=== PATIENT | female | born 1975 | race African-American/Black ===

== ENCOUNTER 2021-11-14 08:57 | Emergency (ER) | payer OTHER, SELFPAY ==
--- NOTE | ~2021-11-14 | US_ITS ---
EXAMINATION: US pelvic complete w TV DATE: 11/14/2021 11:06 INDICATION: Pelvic pain. Heavy menses. Fibroids. TECHNIQUE: Multiple transabdominal and endovaginal sonographic images of the pelvis were obtained. COMPARISON: None. FINDINGS: The uterus measures 10.3 x 8.1 x 7.5 cm. The endometrial complex measures 8 mm in thickness. There a re at least 8 hypoechoic uterine fibroids, the largest measuring 5.3 cm in maximal diameter. There ar e coarse shadowing calcifications associated with a couple of the fibroids. A couple 7-8 mm anechoic nabothian cysts at the cervix. The right ovary is not visualized. The left ovary measures 2.2 x 2.3 x 1.2 with internal vascular flow on color Doppler. There is no free fluid in the pelvis. IMPRESSION: 1. Multiple uterine fibroids with normal endometrial complex thickness of 8 mm. Reviewed, dictated and finalized at location A.
[2021-11-14 09:14] VITALS: BP 131/95; PULSE 103; RESP 18; TEMP 37.2; O2SAT 98
[2021-11-14 09:19] LABS: Eosinophils Absolute Auto 0.1 K/mm3 (0-0.3); Eosinophils Percent Auto 2.2 % (0-4.4); Hematocrit 36.4 % (37.0-47.0); Hemoglobin 11.7 g/dL (12.0-15.0); Immature Granulocyte Absolute 0.01 K/mm3 (0.00-0.031); Immature Granulocyte Percent A 0.2 % (0-0.5); Lymphocytes Absolute Auto 1.59 K/mm3 (0.9-3.2); Lymphocytes Percent Auto 39.4 % (18.3-44.2); Mean Corpuscular HGB Conc 32.1 g/dl (32-36); Mean Corpuscular Hemoglobin 25.7 pg (26-34); Mean Platelet Volume 9.6 fl (7.4-10.4); Monocytes Absolute Auto 0.5 K/mm3 (0.1-0.6); Monocytes Percent Auto 11.4 % (2.6-8.5); Neutrophils Absolute Auto 1.9 K/mm3 (1.3-6.7); Neutrophils Percent Auto 45.8 % (45.5-73.1); Platelet Count Result 335 k/mm3 (150-375); Red Blood Count 4.55 M/mm3 (4.2-5.4); Red Cell Distribution Width 14.9 % (11.5-14.5)
[2021-11-14 09:26] LABS: Appearance Urine Clear (Clear); Bilirubin Urine Negative (Negative); Blood Urine Negative (Negative); Glucose Urine UA Negative (Negative); Ketones Urine Negative (Negative); Leukocyte Esterase Ur Negative LEU/UL (Negative); Nitrate Urine Negative (Negative); Protein Urine Negative (Negative); Specific Grav Ur <= 1.005 (1.001-1.035); Urobilinogen Urine 0.2 mg/dL (<2.0)
[2021-11-14 09:31] LABS: Alanine Aminotransferase 20 U/L (6-35); Albumin Level 4.4 g/dL (3.5-5.1); Alkaline Phosphatase 56 U/L (38-126); Anion Gap 10 mmol/L (8-16); Aspartate Amino Transferase 33 U/L (14-36); Bilirubin,Total < 0.1 mg/dL (0.2-1.3); Blood Urea Nitrogen 9 mg/dL (7-17); Calcium 8.9 mg/dL (8.4-10.2); Carbon Dioxide 22 mmol/L (22-30); Chloride 107 mmol/L (98-107); Estimated CRCL calculation 84 ml/min; Estimated Glomerular Filt Rate > 60; Glucose 108 mg/dL (65-110); Lipase 63 U/L (23-300); Potassium 3.6 mmol/L (3.4-5.0); Sodium 139 mmol/L (137-145)
[2021-11-14 09:32] LABS: Add Urine Microscopic? NO; Color Urine Straw (Yellow)
--- NOTE | 2021-11-14 10:32 | ED.ABDPAIN ---
HPI - Abdominal Pain General Chief Complaint: Abdominal Pain Stated Complaint: abd pain Time Seen by Provider: 11/14/21 10:07 Source: patient Mode of arrival: ambulatory Limitations: no limitations History of Present Illness HPI narrative: 46-year-old female presents with pelvic pain, abnormal vaginal bleeding that has been on and off for 1 year. Patient states she has been having abnormal vaginal bleeding. Patient states she has been to multiple ERs in the past couple months. Patient states she was diagnosed with uterine fibroids and uterine cyst in 2019. Patient does not have an SOURCING ASSOCIATE. Patient was attempting to get into primary care office but was unable until to go to the ER. Patient denies any other symptoms. MD elicited complaint: abdominal pain Pertinent past history: other (Uterine fibroids and uterine cyst) Onset (ago): year(s) (1) Pain Consistency: intermittent Location: pelvis Severity: moderate Quality: stabbing and aching Radiation: none Exacerbating factors: nothing Relieving factors: nothing Related Data Allergies Allergy/AdvReac Type Severity Reaction Status Date / Time No Known Allergies Allergy Verified 11/14/21 09:14 Review of Systems Review of Systems: All systems reviewed & are unremarkable except as noted in HPI and below Constitutional: Constitutional: Reports no additional constitutional complaints Eyes: Eyes: Reports no additional eye complaints ENT: Reports system reviewed and no additional complaints, except as documented Cardiovascular: Cardiovascular: Reports no additional cardiovascular complaints Respiratory: Respiratory: Reports no additional respiratory complaints Gastrointestinal: Comments: Pelvic pain Genitourinary: Genitourinary: Reports abnormal vaginal bleeding and Reports pelvic pain Musculoskeletal: Musculoskeletal: Reports no additional musculoskeletal complaints Integumentary/Breasts: Skin/Breast: Reports system reviewed and no additional complaints, except as docu Neurologic: Reports system reviewed and no additional complaints, except as documented Psychiatric: Psychiatric: Reports no additional psychiatric complaints Endocrine: Endocrine: Reports no additional endocrine complaints Hematologic/Lymphatic: Hematologic/Lymphatic: Reports no additional hematologic/lymphatic complaints Allergic/Immunologic: Allergic/Immunologic: Reports no additional allergic/immunologic complaints Exam Narrative: General appearance: Well-developed, well-nourished Skin: Normal color Head: Normocephalic, nontraumatic Eyes: Clear conjunctiva ENT: Oropharynx normal, ears normal, nose normal Neck: Supple, nontender Chest and respiratory: Airway patent, no respiratory distress, no accessory muscle use Heart: Regular rate/rhythm Abdomen: Soft, generalized tenderness more prominent in pelvic region, no organomegaly, quiet bowel sounds Vascular: Normal peripheral pulses, normal capillary refill. Musculoskeletal: Normal range of motion, nontender back Neurologic: Alert and oriented ?3, [employer] is normal as tested, no gross motor deficit Course Course Emergency Course: Will order pelvic ultrasound. Pelvic ultrasound shows uterine fibroids. Will discharge with pain medicine and refer to SOURCING ASSOCIATE. Patient verbalized understanding and agreeable with plan. Vital Signs Vital signs: Vital Signs Temperature 37.2 C 11/14/21 09:14 Pulse Rate 103 H 11/14/21 09:14 Respiratory Rate 18 11/14/21 09:14 Blood Pressure 131/95 H 11/14/21 09:14 Pulse Oximetry 98 11/14/21 09:14 Temperature 37.2 C 11/14/21 09:14 Pulse Rate 86 11/14/21 11:06 Respiratory Rate 17 11/14/21 11:06 Blood Pressure 118/86
--- NOTE | 2021-11-14 10:44 | PC.NURSE ---
Pt in U/S via w/c at this time.
[2021-11-14] MEDS: MORPHINE SULFATE (*CRX) 4 MG/ML INJ IV PUSH (11:04)
[2021-11-14 11:06] VITALS: BP 118/86; PULSE 86; RESP 17; O2SAT 100
[2021-11-14 12:02] VITALS: BP 142/78; PULSE 77; RESP 18; O2SAT 98
== END 2021-11-14 12:02 | disposition home or self-care (01) ==
PROVIDERS: Emergency Medicine; Emergency Provider Nurse Practitioner Family
DX: D25.9 Leiomyoma of uterus, unspecified (principal); R10.2 Pelvic and perineal pain
CPT/HCPCS: 36415; 76830; 76856; 80053; 81003; 81025; 83690; 85025; 96374; 99284; J2270